=== PATIENT | male | born 1990 | race Caucasian/White ===

== ENCOUNTER 2023-06-05 13:25 | Outpatient (CLI) | payer OTHER ==
--- NOTE | 2023-06-05 14:07 | XRAY Report ---
PROCEDURE: Lumbar Spine 2-3V INDICATIONS: STRAIN OF MUSCLE, TENDON AND FASCIA OF LOWER BACK TECHNIQUE: 2 views of the lumbar spine were acquired. COMPARISON: None. FINDINGS: Bones: 5 [id number] vertebrae are present. Trace retrolisthesis of L5 on S1. Minimal disc heigh t loss at L5-S1 and mild bilateral facet arthropathy at that level. No vertebral body compression fr actures. No suspicious bony lesions. Soft tissues: Overlying bowel gas pattern is normal. No suspicious soft tissue calcifications. IMPRESSION: No acute osseous abnormality. Trace retrolisthesis of L5 on S1. Mild discogenic degeneration at L5-S1 with mild bilateral facet arthropathy. Reviewed by: Jackie Nunn MD on 06/05/2023 2:06 PM PST Approved by: Jackie Nunn MD on 06/05/2023 2:06 PM PST Station ID: [id number]
== END 2023-06-05 22:35 | disposition home or self-care (01) ==
LOC: DI.N 13:25
PROVIDERS: ATTEND Family Medicine
DX: S39.012A Strain of muscle, fascia and tendon of lower back, initial encounter (principal); M43.17 Spondylolisthesis, lumbosacral region; M47.817 Spondylosis without myelopathy or radiculopathy, lumbosacral region; M51.37 Other intervertebral disc degeneration, lumbosacral region